=== PATIENT | male | born 1975 | race Two or more races ===

== ENCOUNTER 2018-01-31 18:55 | Emergency (ER) | payer BC, MEDICAID, OTHER ==
[~2018-01-31] VITALS: Ht 170.2 cm; Wt 104.3 kg
--- NOTE | 2018-01-31 19:15 | NUR ---
BIBSELF, AMBAULATORY TO ER BED 15 C/O RIGHT SIDE FACIAL NUMBESS AND DIZZINESS X 5 DAYS. STEADY GAIT. PT AOX3 RR EVEN AND UNLABORED. NO SOB NOTED. NAD NOTED. NO NVD AT THIS TIME. PT GOWNED AND PLACED ON MONITOR. YOVANA LOPEZ AT BEDSIDE FOR EVAL.
--- NOTE | 2018-01-31 19:45 | NUR ---
PT RETURNED FROM CT.
[2018-01-31 20:03] VITALS: BP 128/78
--- NOTE | 2018-01-31 20:03 | NUR ---
RPatient is resting comfortably in bed with eyes closed. Easily aroused. VSS
== END 2018-01-31 20:48 | disposition home or self-care (01) ==
LOC: ER 19:02
DX: R20.2 Paresthesia of skin (principal); R42 Dizziness and giddiness
CPT/HCPCS: 70450-TC; 82962-TC; A4606; Z7610